=== PATIENT | male | born 1975 | race African-American/Black ===

== ENCOUNTER 2020-01-19 19:51 | Emergency (ER) | payer SELFPAY ==
[2020-01-19] MEDS ORDERED: Lidocaine 1% MPF ** 5 ML VIAL INJ ONE (20:05)
--- NOTE | 2020-01-19 20:05 | UC ---
Head Injury HPI - HPI Summary HPI Summary: 44-year-old male comes in with chief complaint of laceration to his left cheek. Patient was at work today when a ratchet wrench popped back and struck him over the left zygomatic arch. No loss of consciousness is not worried about any broken bones. He does have a 1 cm laceration on his face. Occurred around noon or 1:00 PM today. Stopped the bleeding with direct pressure. No concern of any injury to the eye. No nausea. No vision change. Patient is not sure when his last tetanus shot. - History Of Current Complaint Chief Complaint: UCLaceration Stated Complaint: FACE LACERATION Time Seen by Provider: 01/19/20 19:52 Pain Intensity: 0 - Allergies/Home Medications Allergies/Adverse Reactions: Allergies Allergy/AdvReac Type Severity Reaction Status Date / Time No Known Allergies Allergy Verified 01/19/20 20:00 Home Medications: Home Medications Ibuprofen TAB* [Motrin TAB* 400 MG] 400 mg PO Q6H PRN 01/19/20 [History Confirmed 01/19/20] NK [No Home Medications Reported] 01/19/20 [History Confirmed 01/19/20] PMH/Surg Hx/FS Hx/Imm Hx Previously Healthy: Yes - Surgical History Surgical History: Yes Surgery Procedure, Year, and Place: patella repair - Family History Known Family History: Positive: Non-Contributory - Social History Alcohol Use: None Substance Use Type: Marijuana Substance Use Comment - Amount & Last Used: daliy Smoking Status (MU): Never Smoked Tobacco - Immunization History Most Recent Tetanus Shot: unknown Review of Systems All Other Systems Reviewed And Are Negative: Yes Constitutional: Positive: Negative Skin: Positive: Other - see hpi Eyes: Positive: Negative ENT: Positive: Negative Respiratory: Positive: Negative Cardiovascular: Positive: Negative Motor: Positive: Negative Neurovascular: Positive: Negative Musculoskeletal: Positive: Negative Neurological/Mental Status: Positive: Negative Psychological: Positive: Negative Is Patient Immunocompromised?: No Physical Exam Triage Information Reviewed: Yes Appearance: Well-Appearing, No Pain Distress, Well-Nourished Vital Signs Reviewed: Yes Eye Exam: Normal Eyes: Positive: Conjunctiva Clear ENT: Negative: Nasal drainage Neck: Positive: Supple Respiratory: Positive: No respiratory distress Musculoskeletal: Positive: Strength Intact, ROM Intact Neurological: Positive: Alert Psychological: Positive: Age Appropriate Behavior Skin: Positive: Other - 1 cm subcutaneous linear laceration over the left zygomatic arch. No active bleeding. No evidence of foreign body. Procedures - Laceration/Wound Repair 1 Location: face Description: Linear Anesthesia: Local, 1.0%, Lido Betadine Prep?: No - irrigated with saline by nursing Laceration/Wound Explored: clean, no foreign body removed Closure: Single Layer - 3 simple interrupted sutures Debridement: none Suture Type: Prolene - 6-0 Layer Closure?: No Head Injury Course/Dx - Course Course Of Treatment: Sutures out in 5 days. Patient was given the T dap here. Patient will follow up to get the sutures out and also if he has any questions or concerns or complications. - Differential Dx/Diagnosis Provider Diagnosis: Laceration of face Discharge ED - Sign-Out/Discharge Documenting (check all that apply): Patient Departure All imaging exams completed and their final reports reviewed: No Studies - Discharge Plan Condition: Stable Disposition: HOME Patient Education Materials: Care For Your Stitches (ED), Facial Laceration (ED ) Referrals: [facility] [Outside] Additional Instructions: FOLLOW UP WITH YOUR DOCTOR. Sutures out in 5 days. Placed some antibiotic ointment on the laceration to help decrease scarring. He received a tetanus immunization today. GET REEVALUATED IF NOT IMPROVED OR WORSE; SIGNS OF INFECTION OR ANY QUESTIONS OR CONCERNS. - Billing Disposition and Condition Condition: STABLE Disposition: Home
[2020-01-19] MEDS ORDERED: Tetan/Diph/Pertus SYR(Tdap)* 0.5 ML SYR(BOOSTRIX) use SYR contains LATEX IM ONE (20:06)
== END 2020-01-19 20:44 | disposition home or self-care (01) ==
LOC: UCEAST 19:51
DX: S01.412A Laceration without foreign body of left cheek and temporomandibular area, initial encounter (principal); W22.8XXA Striking against or struck by other objects, initial encounter; Y93.89 Activity, other specified; Y92.9 Unspecified place or not applicable; Y99.0 Civilian activity done for income or pay; Z23 Encounter for immunization
CPT/HCPCS: 12011; 90471; 90715; 99201; G0463

== ENCOUNTER 2020-01-24 09:15 | Emergency (ER) | payer SELFPAY ==
--- NOTE | 2020-01-24 09:32 | UC ---
HPI Wound/Suture Re-check - HPI Summary HPI Summary: 44-year-old male presents for suture removal. Patient was seen here on 2019 for a laceration to the left cheek which was repaired using 3 interrupted sutures. Tetanus was updated at that time. Denies fever, chills, erythema, edema, or discharge. Afebrile. - History Of Current Complaint Chief Complaint: UCLaceration Stated Complaint: NEEDS STITCHES REMOVED Time Seen by Provider: 01/24/20 09:22 Hx Obtained From: Patient Pain Intensity: 0 - Allergies/Home Medications Allergies/Adverse Reactions: Allergies Allergy/AdvReac Type Severity Reaction Status Date / Time No Known Allergies Allergy Verified 01/24/20 09:23 Home Medications: Home Medications NK [No Home Medications Reported] 01/19/20 [History Confirmed 01/24/20] PMH/Surg Hx/FS Hx/Imm Hx Previously Healthy: Yes - Denies significant PMH - Surgical History Surgical History: Yes Surgery Procedure, Year, and Place: patella repair - Family History Family History: Denies significant FMH - Social History Occupation: Employed Full-time Lives: With Family Alcohol Use: None Substance Use Type: Marijuana Substance Use Comment - Amount & Last Used: daily Smoking Status (MU): Never Smoked Tobacco - Immunization History Most Recent Tetanus Shot: unknown Review of Systems All Other Systems Reviewed And Are Negative: Yes Constitutional: Negative: Fever, Chills Skin: Positive: Other - See HPI Respiratory: Positive: Negative Cardiovascular: Positive: Negative Gastrointestinal: Positive: Negative Genitourinary: Positive: Negative Musculoskeletal: Positive: Negative Neurological/Mental Status: Positive: Negative Is Patient Immunocompromised?: No Physical Exam - Summary Physical Exam Summary: GENERAL APPEARANCE: Well developed, well nourished, alert and cooperative, and appears to be in no acute distress. HEAD: 1 cm well approximated and healing linear laceration over the left cheek below the left eye. No erythema, edema, or discharge noted. CARDIAC: Normal S1 and S2. No S3, S4 or murmurs. Rhythm is regular. There is no peripheral edema, cyanosis or pallor. Extremities are warm and well perfused. Capillary refill is less than 2 seconds. Peripheral pulses intact. LUNGS: Clear to auscultation without rales, rhonchi, wheezing or diminished breath sounds. ABDOMEN: Positive bowel sounds. Soft, nondistended, nontender. No guarding or rebound. No masses or hepatosplenomegally. MUSKULOSKELETAL: ROM intact to all extremities. No joint erythema or tenderness. Normal muscular development. Normal gait. SKIN: Skin normal color, texture and turgor. Triage Information Reviewed: Yes Vital Signs Reviewed: Yes Course/Dx - Course Course Of Treatment: 44-year-old male presents for suture removal. Patient was seen here on 2019 for a laceration to the left cheek which was repaired using 3 interrupted sutures. Tetanus was updated at that time. Denies fever, chills, erythema, edema, or discharge. Afebrile. Vital signs stable. Patient had a 1 cm well approximated and healing linear laceration over the left cheek below the left eye. No erythema, edema, or discharge noted. Remainder of exam was unremarkable. The 3 interrupted sutures were removed without complication. He is to follow-up here or with his primary care as needed. Anticipatory guidance , wound care, and warning symptoms are reviewed with the patient. Verbalizes understanding and agrees with plan of care. - Diagnosis Provider Diagnosis: Facial laceration, Encounter for removal of sutures Discharge ED - Sign-Out/Discharge Documenting (check all that apply): Patient Departure All imaging exams completed and their final reports reviewed: No Studies - Discharge Plan Condition: Stable Disposition: HOME Patient Education Materials: Acute Wound Care (ED) Referrals: No Primary Care Phys,NOPCP [Primary Care Provider] - Additional Instructions: Your sutures were removed without complication. Clean the wound with a mild soap and water at least once a day. Apply some antibiotic ointment to help minimize scarring. Avoid extended sun exposure as this could cause the scar tissue to become discolored. Apply sunscreen if you need to be outdoors. Watch for signs of infection including fever greater than 100.5 F, severe pain not managed with pain medication, redness that spreads, swelling of the hand/ fingers, or pus draining from the wound. Seek immediate medical attention should any of these occur. - Billing Disposition and Condition Condition: STABLE Disposition: Home
[2020-01-24 10:02] VITALS: BP 133/95
== END 2020-01-24 09:45 | disposition home or self-care (01) ==
LOC: UCEAST 09:15
DX: S01.412D Laceration without foreign body of left cheek and temporomandibular area, subsequent encounter (principal); W45.8XXD Other foreign body or object entering through skin, subsequent encounter